=== PATIENT | male | born 1955 | race Caucasian/White ===

== ENCOUNTER 2017-06-11 10:39 | Inpatient (IN) | payer OTHER ==
[~2017-06-11] VITALS: Ht 188 cm; Wt 78.5 kg
[2017-06-11 10:40] VITALS: BP_SYST 116
[2017-06-11] MEDS ORDERED: NACL 0.9% 1,000 ML IV SCH (10:47)
[2017-06-11] MEDS ORDERED: IPRATROPIUM/ALBUTEROL SULFATE 3 ML AMPUL.NEB INH ONE (11:00)
[2017-06-11 11:09] LABS: BASOPHILS % (AUTO) 0.2 % (0.0-2.0); EOSINOPHILS % (AUTO) 0.3 % (0.0-4.0); HEMATOCRIT 28.9 % (36-54); LYMPHOCYTES # (AUTO) 0.4 K/uL (1.0-5.5); LYMPHOCYTES % (AUTO) 10.3 % (20.5-51.5); MEAN CORPUSCULAR HEMOGLOBIN 24 pg (27-31); MEAN CORPUSCULAR HGB CONC 31 % (32-36); MEAN CORPUSCULAR VOLUME 76 fL (79.0-98.0); MONOCYTES # (AUTO) 0.2 K/uL (0.0-1.0); MONOCYTES % (AUTO) 5.8 % (1.7-9.3); NEUTROPHILS # (AUTO) 3.1 K/uL (1.8-7.7); NEUTROPHILS % (AUTO) 83.4 % (40.0-70.0); PLATELET COUNT (AUTO) 127 K/uL (130-430); RED BLOOD CELL COUNT(AUTO) 3.82 MIL/uL (4.2-6.2); RED CELL DISTRIBUTION WIDTH 15.4 % (9.0-15.0); WHITE BLOOD COUNT (AUTO) 3.7 K/uL (4.8-10.8)
[2017-06-11] MEDS ORDERED: VANCOMYCIN HCL 1,000 MG in NS 250 ML IV ONE (11:15)
[2017-06-11] MEDS ORDERED: CEFEPIME 1 GM in D5W 50 ML IV ONE (11:15)
[2017-06-11 11:23] LABS: CALCIUM 10.4 mg/dL (8.4-11.0); CREATININE 0.68 mg/dL (0.55-1.30); POTASSIUM 3.5 mmol/L (3.5-5.1)
[2017-06-11 11:27] LABS: ALBUMIN 2.2 g/dL (3.4-4.8); TOTAL BILIRUBIN 0.6 mg/dL (0.0-1.0)
[2017-06-11 11:41] LABS: INR 1.1 (0.80-1.20); PROTHROMBIN TIME 11.2 SECS (9.5-12.5)
[2017-06-11] MEDS ORDERED: CEFEPIME 1 GM/VIAL (MAXIPIME) ONE ×2 (11:50→20:58)
[2017-06-11 11:54] LABS: BILIRUBIN,URINE NEGATIVE (NEGATIVE); BLOOD, URINE NEGATIVE (NEGATIVE); CLARITY/URINE CLEAR (CLEAR); COLOR,URINE YELLOW (YELLOW); GLUCOSE,URINE NEGATIVE (NEGATIVE); KETONES,URINE NEGATIVE (NEGATIVE); LEUKOCYTE ESTERASE ,URINE NEGATIVE (NEGATIVE); NITRITE, URINE NEGATIVE (NEGATIVE); PH,URINE 6.5 (5.0-8.0); PROTEIN URINE NEGATIVE (NEGATIVE)
[2017-06-11] MEDS ORDERED: VANCOMYCIN HCL 1000 MG/VIAL IV ONE ×2 (12:15→20:58)
[2017-06-11 15:29] VITALS: BP_SYST 122
[2017-06-11] MEDS ORDERED: [UNRECOGNIZED DRUG - CODE] PO (15:45)
[2017-06-11] MEDS ORDERED: EMTR1TAB18 PO (15:49)
[2017-06-11] MEDS ORDERED: LORA1TAB PO (15:49)
[2017-06-11] MEDS ORDERED: ONDA4TAB22 PO (15:49)
[2017-06-11 16:00] VITALS: BP_SYST 122
[2017-06-11 20:00] VITALS: BP_SYST 126
[2017-06-11] MEDS ORDERED: IPRATROPIUM/ALBUTEROL SULFATE 3 ML AMPUL.NEB INH PRN (20:00)
[2017-06-11] MEDS ORDERED: ONDANSETRON 4 MG ODT TAB PO PRN (20:15)
[2017-06-11] MEDS ORDERED: guaiFENesin 200 MG/CODEINE 20 MG/ 10 ML UDC PO PRN (20:15)
[2017-06-11] MEDS ORDERED: LORazepam 1 MG TABLET PO PRN (20:15)
[2017-06-11] MEDS: D5LR 1,000 ML IV SCH (20:31)
[2017-06-11] MEDS: CEFEPIME 1 GM in D5W 50 ML IV SCH (20:59)
[2017-06-11] MEDS ORDERED: AZITHROMYCIN 250 MG TABLET PO SCH (21:00)
[2017-06-11 21:29] VITALS: BP_SYST 126
[2017-06-11] MEDS: IPRATROPIUM/ALBUTEROL SULFATE 3 ML AMPUL.NEB INH SCH (23:17)
[2017-06-12] VITALS (7 sets, daily range): BP systolic 93–149
[2017-06-12] MEDS ORDERED: VANCOMYCIN HCL 1 GM/NS PREMIX 250 ML IV ONE (01:00)
[2017-06-12] MEDS: IPRATROPIUM/ALBUTEROL SULFATE 3 ML AMPUL.NEB INH SCH ×5 (04:31→19:37)
[2017-06-12] MEDS: CEFEPIME 1 GM in D5W 50 ML IV SCH (09:35)
[2017-06-12 12:39] LABS: CALCIUM 10.4 mg/dL (8.4-11.0); CREATININE 0.72 mg/dL (0.55-1.30); POTASSIUM 3.5 mmol/L (3.5-5.1)
[2017-06-12 12:46] LABS: BASOPHILS % (AUTO) 0.4 % (0.0-2.0); EOSINOPHILS % (AUTO) 0.3 % (0.0-4.0); HEMATOCRIT 27.8 % (36-54); HEMOGLOBIN 8.7 g/dL (14.0-18.0); LYMPHOCYTES # (AUTO) 0.4 K/uL (1.0-5.5); LYMPHOCYTES % (AUTO) 11.3 % (20.5-51.5); MEAN CORPUSCULAR HEMOGLOBIN 24 pg (27-31); MEAN CORPUSCULAR HGB CONC 31 % (32-36); MEAN CORPUSCULAR VOLUME 76 fL (79.0-98.0); MONOCYTES # (AUTO) 0.3 K/uL (0.0-1.0); MONOCYTES % (AUTO) 7.8 % (1.7-9.3); NEUTROPHILS # (AUTO) 3.3 K/uL (1.8-7.7); NEUTROPHILS % (AUTO) 80.2 % (40.0-70.0); PLATELET COUNT (AUTO) 128 K/uL (130-430); RED BLOOD CELL COUNT(AUTO) 3.66 MIL/uL (4.2-6.2); RED CELL DISTRIBUTION WIDTH 15.4 % (9.0-15.0)
[2017-06-12] MEDS ORDERED: VANCOMYCIN HCL 1,000 MG in NS 250 ML IV SCH (13:00)
[2017-06-12] MEDS: D5LR 1,000 ML IV SCH (14:54)
[2017-06-12] MEDS ORDERED: ODEFSEY PO SCH (18:00)
[2017-06-12] MEDS ORDERED: RILPIVIRINE PO SCH ×2 (18:00)
[2017-06-12] MEDS ORDERED: [UNRECOGNIZED DRUG - OTHER] PO SCH (18:00)
[2017-06-12] MEDS ORDERED: TENOFOVIR ALAFENAMIDE PO SCH ×2 (18:00)
[2017-06-12] MEDS ORDERED: EMTRICITABINE PO SCH (18:00)
== END 2017-06-12 19:55 | disposition short-term general hospital (02) | DRG 975 ==
LOC: SED 10:39 → STU 14:31
PROVIDERS: ADMIT Internal Medicine; ATTEND Internal Medicine
DX: J18.9 Pneumonia, unspecified organism (principal); B20 Human immunodeficiency virus [HIV] disease; C64.9 Malignant neoplasm of unspecified kidney, except renal pelvis; G93.41 Metabolic encephalopathy; Z66 Do not resuscitate
CPT/HCPCS: 36415; 36600; 70450-TC; 71045; 80048; 80053; 81003; 82140-TC; 82550-TC; 82803-TC; 83605; 83690-TC; 83880; 84484; 85025; 85610-TC; 85730-TC; 87040-TC; 87086; 93005; 94640; 94760; 96365; 96366; 96367; 99285; J0692; J3370; J7030; J7050; J7060; J7120; Q0144